=== PATIENT | male | born 1940 | race Caucasian/White ===

== ENCOUNTER 2016-12-08 18:36 | Emergency (ER) | payer OTHER ==
[2016-12-08 18:46] VITALS: BP 118/32
[2016-12-08] MEDS ORDERED: Acetaminophen TAB* 325 MG PO ONE (19:35)
--- NOTE | 2016-12-08 19:36 | UC ---
Throat Pain/Nasal Kevin HPI - HPI Summary HPI Summary: patient has had a fever, sore throat, bodyaches and chills for the past three days. - History of Current Complaint Chief Complaint: UCGeneralIllness Stated Complaint: COLD COMPLAINT Time Seen by Provider: 12/08/16 19:28 Hx Obtained From: Patient Onset/Duration: Sudden Onset, Lasting Days Severity: Moderate Cough: Nonproductive Associated Signs & Symptoms: Positive: Dysphagia, Sinus Discomfort, Fever - Epiglottits Risk Factors Epiglottis Risk Factors: Negative - Allergies/Home Medications Allergies/Adverse Reactions: Allergies Allergy/AdvReac Type Severity Reaction Status Date / Time Aspirin Allergy See Comment Verified 12/08/16 18:47 Home Medications: Home Medications Levothyroxine TAB* [Synthroid TAB*] 50 mcg PO DAILY 12/08/16 [History Confirmed 12/08/16] Tamsulosin CAP* [Flomax CAP*] 0.4 mg PO DAILY 12/08/16 [History Confirmed ] PMH/Surg Hx/FS Hx/Imm Hx Previously Healthy: Yes - Surgical History Surgical History: Yes Surgery Procedure, Year, and Place: hernia repair x 2. T&A. Twisted stomach. left pinky fnger - Family History Known Family History: Negative: Cardiac Disease, Hypertension - Social History Alcohol Use: None Substance Use Type: None Smoking Status (MU): Never Smoked Tobacco Review of Systems Constitutional: Fever, Fatigue Skin: Negative Eyes: Eye Redness ENT: Sore Throat, Ear Ache Respiratory: Cough Cardiovascular: Negative Gastrointestinal: Negative Genitourinary: Negative Motor: Negative Neurovascular: Negative Musculoskeletal: Negative Neurological: Negative Psychological: Negative All Other Systems Reviewed And Are Negative: Yes Physical Exam Triage Information Reviewed: Yes Appearance: Well-Nourished, Ill-Appearing, Pain Distress Vital Signs: Initial Vital Signs Temp 100.5 F 12/08/16 18:42 Pulse 76 12/08/16 18:42 Resp 16 12/08/16 18:42 BP 118/32 12/08/16 18:42 Pulse Ox 100 12/08/16 18:42 Vital Signs Reviewed: Yes Eye Exam: Normal Eyes: Positive: Conjunctiva Inflamed ENT: Positive: Pharyngeal erythema, Nasal drainage, TM red, Tonsillar swelling, Tonsillar exudate Dental Exam: Normal Neck exam: Normal Neck: Positive: Supple, Nontender, No Lymphadenopathy Respiratory Exam: Normal Respiratory: Positive: Chest non-tender, Lungs clear, Normal breath sounds Cardiovascular Exam: Normal Cardiovascular: Positive: RRR, No Murmur, Pulses Normal Abdominal Exam: Normal Abdomen Description: Positive: Nontender, No Organomegaly, Soft Bowel Sounds: Positive: Present Musculoskeletal Exam: Normal Musculoskeletal: Positive: Strength Intact, ROM Intact, No Edema Neurological Exam: Normal Neurological: Positive: Alert, Muscle Tone Normal Psychological Exam: Normal Skin Exam: Normal Throat Pain/Nasal Course/Dx - Course Course Of Treatment: hx obtained, exam performed, meds reviewed, rapid flu obtained and negative, tylneol given, treated for sinus infection and pharyngitis. - Differential Dx/Diagnosis Differential Diagnosis/HQI/PQRI: Influenza, Laryngitis, Otitis Media, Pharyngitis, Sinusitis, URI Provider Diagnoses: sinusitis. pharyngitis Discharge - Discharge Plan Condition: Stable Disposition: HOME Prescriptions: Amoxicillin (*) [Amoxicillin 875 MG (*)] 875 mg PO BID #20 tab Patient Education Materials: Sinusitis (ED) Additional Instructions: 1. take the medication as prescribed. 2. Continue with tylenol for pain and fever. 3. Follow up if your symptoms are not improving.
== END 2016-12-08 20:09 | disposition home or self-care (01) ==
LOC: UCCORT 18:36
DX: J32.9 Chronic sinusitis, unspecified (principal); J02.9 Acute pharyngitis, unspecified
CPT/HCPCS: 87502; 99212; A9270-GY; G0463

== ENCOUNTER 2017-04-02 17:45 | Emergency (ER) | payer OTHER ==
[2017-04-02 18:02] VITALS: BP 116/58
--- NOTE | 2017-04-02 18:17 | UC ---
Skin Complaint HPI - HPI Summary HPI Summary: 76 year old male with skin complaint. red spot on the inside of his left calf. patient first noticed yesterday. the spot is swollen and tender. he has had some other areas just the same. they are there for about 4 days and then they go away. [ End ] - History of Current Complaint Chief Complaint: UCSkin Time Seen by Provider: 04/02/17 18:11 Stated Complaint: SWOLLEN SORE SPOT ON LEFT LEG Hx Obtained From: Patient Onset/Duration: Gradual Onset Skin Exposure Onset/Duration: Days Ago Character: Pain Aggravating Factor(s): Nothing Alleviating Factor(s): Nothing - Allergy/Home Medications Allergies/Adverse Reactions: Allergies Allergy/AdvReac Type Severity Reaction Status Date / Time Aspirin Allergy See Comment Verified 04/02/17 18:02 Review of Systems Skin: Other - left lower leg with redness Is Patient Immunocompromised?: No All Other Systems Reviewed And Are Negative: Yes PMH/Surg Hx/FS Hx/Imm Hx Previously Healthy: Yes - Surgical History Surgical History: Yes Surgery Procedure, Year, and Place: hernia repair x 2. T&A. Twisted stomach. left pinky fnger - Family History Known Family History: Negative: Cardiac Disease, Hypertension - Social History Occupation: Employed Part-time Lives: With Family Alcohol Use: None Substance Use Type: None Smoking Status (MU): Never Smoked Tobacco Physical Exam Triage Information Reviewed: Yes Appearance: Well-Appearing, No Pain Distress, Well-Nourished Vital Signs: Initial Vital Signs Temp 99.1 F 04/02/17 17:59 Pulse 72 04/02/17 17:59 Resp 14 04/02/17 17:59 BP 116/58 04/02/17 17:59 Pulse Ox 97 04/02/17 17:59 Vital Signs Reviewed: Yes ENT Exam: Normal Dental Exam: Normal Neck exam: Normal Respiratory Exam: Normal Cardiovascular Exam: Normal Musculoskeletal Exam: Normal Neurological Exam: Normal Psychological Exam: Normal Skin: Positive: Other - left lower leg medially with 2x2 cm macular red area. no discharge. no streaking. no induration. tender to palpation. 6 cm distal to the knee. neg homans. Course/Dx - Course Course Of Treatment: treat at this time/ follow up with PCP , no acute concerns. go to ED if any concerns. - Differential Diagnoses - Skin Complaint Differential Diagnoses: Cellulitis, Contact Dermatitis, Erythema Nodosum - Diagnoses Provider Diagnoses: cellulitis left leg Discharge - Discharge Plan Condition: Good Disposition: HOME Patient Education Materials: Cellulitis (ED)
== END 2017-04-02 18:39 | disposition home or self-care (01) ==
LOC: UCCORT 17:45
DX: L03.116 Cellulitis of left lower limb (principal); Z88.6 Allergy status to analgesic agent
CPT/HCPCS: 99212; G0463